=== PATIENT | male | born 1945 | race Caucasian/White ===

== ENCOUNTER 2017-09-28 10:47 | Day surgery (SDC) | payer MEDICARE, OTHER ==
[~2017-09-28] VITALS: Ht 180.3 cm; Wt 78.0 kg
[2017-09-28] VITALS (10 sets, daily range): BP systolic 125–162; BP diastolic 53–73
[2017-09-28] MEDS ORDERED: HEParin (CATH LAB) 2,000 ML IV ONE (10:53)
[2017-09-28] MEDS ORDERED: NS IV 1000 ML 1,000 ML ONE (10:53)
[2017-09-28] MEDS ORDERED: NS IV 1000 ML 1,000 ML IV SCH (11:00)
[2017-09-28 11:27] LABS: HEMOGLOBIN 13.3 G/DL (13.3-17.7); MEAN PLATELET VOLUME 10.1 FL (7.4-10.4); RED BLOOD COUNT 4.19 10^6/uL (4.35-5.85); RED CELL DISTRIBUTION WIDTH 13.2 % (10.0-14.5); WHITE BLOOD COUNT 8.6 10^3/uL (4.3-11.0)
[2017-09-28 11:45] LABS: INR 1.1 (0.8-1.4)
[2017-09-28] MEDS ORDERED: RANI150T90 PO (11:51)
[2017-09-28] MEDS ORDERED: LISI-556 PO (11:51)
[2017-09-28 11:52] LABS: ALANINE AMINOTRANSFERASE 18 U/L (0-55); ALBUMIN 4.5 GM/DL (3.2-4.5); ALKALINE PHOSPHATASE 65 U/L (40-136); BILIRUBIN,TOTAL 1.4 MG/DL (0.1-1.0); BUN/CREATININE RATIO 17; CALCIUM 9.2 MG/DL (8.5-10.1); CARBON DIOXIDE 28 MMOL/L (21-32); CHLORIDE 104 MMOL/L (98-107); CHOLESTEROL 162 MG/DL (< 200); CREATININE SERUM 0.98 MG/DL (0.60-1.30); GFR ESTIMATED > 60; GLUCOSE 104 MG/DL (70-105); HDL CHOLESTEROL 51 MG/DL (40-60); POTASSIUM 4.1 MMOL/L (3.6-5.0); SODIUM 140 MMOL/L (135-145); TOTAL PROTEIN 6.7 GM/DL (6.4-8.2); TRIGLYCERIDES 109 MG/DL (<150); VLDL CHOLESTEROL 22 MG/DL (5-40)
[2017-09-28] MEDS ORDERED: SIMV40TA4 PO (11:52)
[2017-09-28] MEDS ORDERED: IBUP-1773 PO (11:52)
[2017-09-28] MEDS ORDERED: METO-387 PO (11:53)
[2017-09-28] MEDS ORDERED: ACET1TAB45 PO (11:54)
[2017-09-28] MEDS ORDERED: FINA5TAB6 PO (11:56)
[2017-09-28] MEDS ORDERED: MULT-1042 PO (11:56)
[2017-09-28] MEDS ORDERED: ACYC400T PO (11:56)
--- NOTE | 2017-09-28 11:56 | Diagnostic Imaging Report ---
INDICATION: Pre-heart catheterization. Time of exam 11:34 AM No prior studies are available for comparison. The heart size is normal. The pulmonary vascularity is unremarkable. The lungs are clear. No infiltrate, effusion or pneumothorax is detected. Impression: No acute cardiopulmonary process is detected. Dictated by: Dictated on workstation # [id number]
[2017-09-28] MEDS ORDERED: ASCO500T6 PO (11:57)
[2017-09-28] MEDS ORDERED: LIDOCAINE 1% INJ 50 ML (XYLOCAINE) VIAL ONE (12:17)
[2017-09-28] MEDS ORDERED: MIDAZOLAM 5 MG/5 ML (VERSED) VIAL ONE (12:17)
[2017-09-28] MEDS ORDERED: fentaNYL INJECTION 100 MCG/2 ML AMP ONE (12:17)
[2017-09-28] MEDS ORDERED: HEParin 1000 UNIT/ML (10ML VIAL) FOR BOLUS ONE (14:54)
[2017-09-28] MEDS ORDERED: ADENOSINE 3 MG/1 ML (ADENOSCAN) 30ML VIAL IV ONE (14:54)
[2017-09-28] MEDS ORDERED: NITRO DRIP 25000 MCG/D5W 250 ML IV ONE (15:06)
[2017-09-28] MEDS ORDERED: CLOPIDOGREL 300 MG (PLAVIX) TABLET PO ONE (15:14)
[2017-09-28] MEDS ORDERED: ASPIRIN 325 MG (5 GR) TABLET ONE (15:14)
--- NOTE | 2017-09-28 15:15 | Cardiac Procedure Note-CS/ASA ---
Pre-Procedure Note Pre-Op Procedure Note H&P Reviewed The H&P was reviewed, patient examined and no changes noted. Date H&P Reviewed: Sep 28, 2017 Time H&P Reviewed: 15:15 Conscious Sedation Pre-Proced Time Reviewed: 15:15 ASA Class: 3 Airway Mallampati Classification: (nightmute appropriate class) I. II. III, IV Lungs Heart ASA score ASA 1: a normal healthy patient ASA 2: a patient with a mild systemic disease (mid diabetes, controlled hypertension, obesity x ASA 3: a patient with a severe systemic disease that limits activity (angina , COPD, prior Myocardial infarction) ASA 4: a patient with an incapacitating disease that is a constant threat to life (CHF, renal failure) ASA 5: a moribund patient not expected to survive 24 hrs. (ruptured aneurysm) ASA 6: a declared brain patient whose organs are being harvested. For emergent operations, add the letter E after the classification Grade 3 Sedation Plan: Analgesia, Amnesia, Plan communicated to team members, Discussed options with patient/fam, Discussed risks with patient/fam Note The patient is an appropriate candidate to undergo the planned procedure, sedation, and anesthesia. The patient immediately re-assessed prior to indication. ALEXX SZYMANSKI MD Sep 28, 2017 15:15
--- NOTE | 2017-09-28 15:25 | Cardiac Cath Report ---
Cardiac Cath Report Physician (s)/Cutter Apprentice Hand (s) Physician ALEXX SZYMANSKI MD Pre-Procedure Diagnosis Pre-Procedure Diagnosis: Chest pain, Coronary artery Disease Post-Procedure Note Procedure Start Date: Sep 28, 2017 Name of Procedure: Left heart catheterization FFR to the right coronary artery Stent to the right coronary artery Findings/Procedure Note PROCEDURE NOTE: After explaining the procedure to the patient, all pros and cons were explained , all questions were answered. The patient signed the consent and then he was placed on the cardiac catheterization laboratory. Groin was prepped SL fashion local anesthesia was used. Sheath placed in the femoral artery. Heidi right and left catheter were used to access the coronary system. Heidi right was advanced to the left ventricular cavity, pressure was measured, left ventricular gram was done, pullback LV to aorta was done. Then I decided to do FFR to the right coronary artery FFR wire was advanced to the right coronary artery had baseline and it was 0.91 , after 45 minutes of adenosine injection FFR was down to 0.78. I proceeded with primary stenting using 2.532 mm Alpine stent expanded to 2.75 mm with excellent results. No residual stenosis At the end of the procedure the sheath was removed. Closure device was used FINDINGS: Hemodynamics LV 129/16, end-diastolic pressure of 16 Aorta 129/56 mean of 85 ANATOMY: Left Main has no obstructive disease Left Anterior Descending has 40 percent stenosis proximally, nonobstructive disease mild disease distally Left Circumflex is dominant artery with mild disease nonobstructive disease Right Coronory Artery has multiple patent stent, an area in the mid right coronary artery appeared to have 70 percent stenosis, FFR after Adenosine was 0.78. Successful primary stenting using 2.5 x33 Alpine expanded to 2.75 in the midright coronary artery with excellent results. LV Gram is done showing normal left ventricle size and function estimated ejection fraction 60 percent CONCLUSION: 1. Severe midright coronary artery stenosis, old patent stent in the proximal and distal right coronary artery, FFR is 0.78 after Adenosine, successful primary stenting using 2.533 mm Alpine stent expanded to 2.75 with excellent results 2. 40 percent proximal LAD stenosis with mild disease distally 3. Dominant circumflex artery with mild disease obstructive disease 4. Normal left ventricular size and systolic function estimated ejection fraction 60 percent DISCUSSION AND RECOMMENDATION: Patient was loaded with aspirin and Plavix, continue maximizing medical therapy Anesthesia Type: Conscious Sedation Estimated blood loss (mL): 10 ml Contrast Amount: 80 ml Total Radiation Dose: 731 mGy Post-Procedure Diagnosis Post-operative diagnosis: Coronary artery disease Hypertension Hyperlipidemia Family history of heart disease ALEXX SZYMANSKI MD Sep 28, 2017 15:25
[2017-09-28] MEDS ORDERED: PATIENT MAY USE OWN MEDS, ALL PO SCH (15:30)
[2017-09-28] MEDS ORDERED: ACYCLOVIR 400 MG TABLET (ZOVIRAX) PO PRN (16:45)
[2017-09-28] MEDS ORDERED: [UNRECOGNIZED DRUG - OTHER] PO PRN (17:45)
[2017-09-28] MEDS ORDERED: ACETAMINOPHEN WITH CODEINE PO PRN (17:45)
[2017-09-28] MEDS: NS IV 1000 ML 1,000 ML IV SCH (17:59)
[2017-09-28] MEDS ORDERED: NON-FORMULARY MEDICATION 1 EA EA (Ranitidine HCl (Acid Reducer (RANITIDINE)) 150 MG) PO SCH (21:00)
[2017-09-28] MEDS ORDERED: NON-FORMULARY MEDICATION 1 EA EA (Acyclovir 400 MG) PO SCH (21:00)
[2017-09-28] MEDS: raNItidine (ZANTAC) 150 MG TAB NON-FORMULARY PO SCH (21:00)
[2017-09-28] MEDS ORDERED: METOPROLOL SUCCINATE 12.5 MG PO SCH (21:00)
[2017-09-28] MEDS ORDERED: NON-FORMULARY MEDICATION 1 EA EA (Simvastatin 40 MG) PO SCH (21:00)
[2017-09-28] MEDS ORDERED: SIMvastatin 40 MG (ZOCOR) TAB PO SCH (21:00)
[2017-09-28] MEDS: TYLENOL PO PRN (21:04)
[2017-09-28] MEDS: CODEINE PO PRN (21:04)
[2017-09-29] VITALS: BP 153/75
[2017-09-29] MEDS: CODEINE PO PRN (03:14)
[2017-09-29] MEDS: TYLENOL PO PRN (03:14)
[2017-09-29 03:15] VITALS: BP 154/77
[2017-09-29] MEDS: NS IV 1000 ML 1,000 ML IV SCH (03:15)
[2017-09-29 04:12] LABS: HEMOGLOBIN 12.2 G/DL (13.3-17.7); MEAN PLATELET VOLUME 10.7 FL (7.4-10.4); RED BLOOD COUNT 3.86 10^6/uL (4.35-5.85); WHITE BLOOD COUNT 6.5 10^3/uL (4.3-11.0)
[2017-09-29 04:42] LABS: BUN/CREATININE RATIO 22; CALCIUM 8.2 MG/DL (8.5-10.1); CARBON DIOXIDE 25 MMOL/L (21-32); CHLORIDE 109 MMOL/L (98-107); CREATININE SERUM 0.79 MG/DL (0.60-1.30); GFR ESTIMATED > 60; GLUCOSE 81 MG/DL (70-105); POTASSIUM 4.1 MMOL/L (3.6-5.0); SODIUM 141 MMOL/L (135-145)
[2017-09-29] MEDS ORDERED: MULTIVIT W/MINERALS TAB (THERAGRAN M) PO SCH (07:00)
[2017-09-29 07:20] VITALS: BP 159/73
--- NOTE | 2017-09-29 07:52 | Cardiology Progress Note ---
Subjective Date Seen by Provider: Sep 29, 2017 Time Seen by Provider: 07:51 Subjective/Events-last exam Patient is laying down in bed, denied any chest pain, no shortness of breath, groin is healing well. Educated in length about compliance with medication and diet especially Plavix, he was concerned about the easy bruising Review of Systems General: No Chills, No Night Sweats, No Fatigue, No Malaise, No Appetite, No Other HEENT: No Head Aches, No Visual Changes, No Eye Pain, No Ear Pain, No Dysphasia , No Sinus Congestion, No Post Nasal Drip, No Sore Throat, No Other Pulmonary: No Dyspnea, No Cough, No Pleuritic Chest Pain, No Other Cardiovascular: No: Chest Pain, Palpitations, Orthopnea, Paroxysmal Noc. Dyspnea, Edema, Lt Headedness, Other Objective-Cardiology Exam Last Set of Vital Signs Vital Signs 09/29/17 07:20 Temp 97.8 Pulse 55 Resp 20 B/P (MAP) 159/73 (101) Pulse Ox 100 O2 Delivery Room Air Capillary Refill : Less Than 3 Seconds I&O Intake and Output 09/29/17 00:00 Intake Total 1000 ml Balance 1000 ml Intake IV Total 1000 ml General: Alert, Oriented X3, Cooperative HEENT: Atraumatic, PERRLA Neck: Supple, No JVD, No Thyromegaly Lungs: Clear to Auscultation, Normal Air Movement Heart: Regular Rate, Normal S1, Normal S2, No Murmurs Abdomen: Normal Bowel Sounds, Soft, No Tenderness, No Hepatosplenomegaly, No Masses Extremities: No Clubbing, No Cyanosis, No Edema, Normal Pulses, No Tenderness/ Swelling Skin: No Rashes, No Breakdown, No Significant Lesion Neuro: Normal Gait, Normal Speech, Strength at 5/5 X4 Ext, Normal Tone, Sensation Intact Psych/Mental Status: Mental Status NL, Mood NL Results Lab Laboratory Tests 09/28/17 11:22 09/29/17 03:00 A/P-Cardiology Admission Diagnosis Coronary artery disease Hypertension Hyperlipidemia Family history of heart disease Assessment/Plan Coronary artery disease, history of multiple stents in the past, underwent cardiac catheterization with a long stent deployment using 2.532 mm Alpine to the right coronary artery, mild to moderate disease at the rest of his coronary system. He will need to be on aspirin and Plavix for at least 6 months then continue on aspirin alone. History of easy bruising with antiplatelet treatment, concerned about it, I emphasized on the compliance with medication, I will evaluate Plavix metabolism Hypertension, controlled, continue to monitor blood pressure Hyperlipidemia, continue to monitor lipids Strong family history of heart disease ALEXX SZYMANSKI MD Sep 29, 2017 07:52
[2017-09-29] MEDS ORDERED: ASPI-983 PO (07:53)
[2017-09-29] MEDS ORDERED: CLOP75TA28 PO (07:53)
[2017-09-29] MEDS ORDERED: CLOP75TA69 PO (07:54)
--- NOTE | 2017-09-29 07:57 | Discharge Inst-Post CATH ---
Discharge Inst-CATH Post Cardiac Cath D/C Inst Follow Up/Plan Appointment with Dr. Fry's office in 2-4 weeks CARDIAC CATH DISCHARGE INSTRUCTIONS *Hold Metformin for 48 hours post heart cath. ACTIVITY * Go Home directly and rest. * Limit activity of the leg (or wrist if it was used) for 7 days including aerobics, swimming, jogging, bicycling, etc. * Restrict stair-climbing for 7 days if possible, if not, climb up with your non -cath leg, then bring together on the same step. * Avoid lifting, pushing, pulling or excessive movement of the affected extremity for 7 days. * Customary sexual activity may be resumed after 2 days-use caution not to use a position that strains or causes pain to the affected extremity. * No driving for 24 hours. * NO SMOKING. * Avoid straining for bowel movements for 7 days. * Gentle walking on level ground is allowed. * Returning to work will depend on the type of procedure and the results. Your doctor will discuss this with you. CALL YOUR DOCTOR FOR ANY OF THE FOLLOWING: *If bleeding from the puncture site occurs- Apply gentle pressure to site with clean cloth and call your doctor or EMS. * If a knot or lump forms under the skin, increases in size, or causes pain. * If bruising appears to be worsening or moving further down your leg instead of disappearing. * Temperature above 101 F. CARE OF YOUR GROIN INCISION; * Bruising or purple discoloration of the skin near the puncture site is common. * You may shower only, no bathtub bathing for 5 days. Be careful to avoid slipping as your leg may feel stiff. * If a closure device was used on your femoral artery, please see the attached guide regarding care of the device and your leg. * REMOVE the dressing from your groin the next day after your procedure in the shower. CARE OF YOUR WRIST INCISION; * Bruising or purple discoloration of the skin near the puncture site is common. * You may shower. * DO NOT submerge wrist. * Remove dressing in 24 hours. ALEXX FRY MD Sep 29, 2017 07:57
[2017-09-29] MEDS: raNItidine (ZANTAC) 150 MG TAB NON-FORMULARY PO SCH (08:28)
[2017-09-29] MEDS ORDERED: MULTIVIT MIN PO SCH (09:00)
[2017-09-29] MEDS ORDERED: IRON FUM PO SCH (09:00)
[2017-09-29] MEDS ORDERED: NON-FORMULARY MEDICATION 1 EA EA (Finasteride 5 MG) PO SCH (09:00)
[2017-09-29] MEDS ORDERED: ASPIRIN E.C. 81 MG (ECOTRIN) TAB PO SCH (09:00)
[2017-09-29] MEDS ORDERED: lisINopril 5 MG (PRINIVIL) TABLET PO SCH (09:00)
[2017-09-29] MEDS ORDERED: [UNRECOGNIZED DRUG - OTHER] PO SCH (09:00)
[2017-09-29] MEDS ORDERED: FINASTERIDE (PROSCAR) 5 MG TAB PO SCH (09:00)
[2017-09-29] MEDS ORDERED: NON-FORMULARY MEDICATION 1 EA EA (Lisinopril 5 MG) PO SCH (09:00)
[2017-09-29] MEDS ORDERED: CLOPIDOGREL 75 MG (PLAVIX) TABLET PO SCH (09:00)
[2017-09-29] MEDS ORDERED: FOLIC AC PO SCH (09:00)
[2017-09-29 09:48] VITALS: BP 159/73
== END 2017-09-29 09:48 | disposition home or self-care (01) ==
LOC: CATH 10:47 → ICU 15:40 → CATH 09-29 09:48
PROVIDERS: ATTEND Internal Medicine Cardiovascular Disease
DX: I25.10 Atherosclerotic heart disease of native coronary artery without angina pectoris (principal); I10 Essential (primary) hypertension; E78.5 Hyperlipidemia, unspecified; Z82.49 Family history of ischemic heart disease and other diseases of the circulatory system; Z95.5 Presence of coronary angioplasty implant and graft
CPT/HCPCS: 36415; 71045; 80048; 80053; 80061; 81225; 85027; 85610; 85730; 87081; 93005; 93571

== ENCOUNTER → 2019-02-16 | Outpatient (CLI) | payer MEDICARE, OTHER ==
[~2019-02-16] MED LIST: ACET1TAB45 PO; ACYC400T PO; ASCO500T6 PO; ASPI-983 PO; CLOP75TA28 PO; CLOP75TA69 PO; FINA5TAB6 PO; IBUP-1773 PO; LISI-556 PO; METO-387 PO; MULT-1042 PO; RANI150T90 PO; SIMV40TA4 PO
[2019-02-16 11:57] LABS: BUN/CREATININE RATIO 20; CREATININE SERUM 0.89 MG/DL (0.60-1.30); GFR ESTIMATED > 60
== END ==
LOC: LAB 11:31
PROVIDERS: ATTEND Internal Medicine Cardiovascular Disease
DX: I65.23 Occlusion and stenosis of bilateral carotid arteries (principal)
CPT/HCPCS: 36415; 82565; 84520

== ENCOUNTER → 2019-02-16 | Outpatient (CLI) | payer MEDICARE, OTHER ==
--- NOTE | 2019-02-16 14:59 | Diagnostic Imaging Report ---
INDICATION: Carotid stenosis. COMPARISON: No prior studies are available for comparison. TECHNIQUE: Axial imaging through the neck was performed after the administration of intravenous contrast and utilizing CT angiography protocol. Multiplanar, 3-D and MIP reformations were also performed. FINDINGS: There is a two-vessel branching pattern to the aortic arch,, consistent with a bovine arch. Both common carotid arteries are widely patent. There is some mild calcified plaque at the right carotid bifurcation and proximal right ICA, however, no stenosis is identified. Right internal carotid artery is widely patent. Calcified plaque at the left carotid bifurcation is also seen. There is a high-grade stenosis of the proximal left ICA, with only a string of flow. The ICA distal to this stenosis is patent and shows normal caliber. Findings are consistent with greater than 90% diameter stenosis. The vertebral arteries are codominant. No vertebral stenosis is identified. The basilar artery is patent. Carotid siphons demonstrate some calcified plaque but are otherwise widely patent. 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 Right carotid system is unremarkable. Dictated by: Dictated on workstation # [id number]
== END ==
LOC: RAD 11:26
PROVIDERS: ATTEND Internal Medicine Cardiovascular Disease
DX: I65.23 Occlusion and stenosis of bilateral carotid arteries (principal)
CPT/HCPCS: 70498

== ENCOUNTER → 2019-08-27 | Outpatient (CLI) | payer MEDICARE, OTHER ==
[~2019-08-27] VITALS: Ht 180 cm; Wt 78.0 kg
[~2019-08-27] MED LIST changes: -METO-387 PO; +MTP25TSR PO; +REGADENOSON 0.4 MG/5 ML SYR (LEXISCAN) IV ONE; +SIMV40TA25 PO; -SIMV40TA4 PO
[2019-08-27] MEDS: CATHETER FLUSH 10 ML SYR IV PRN ×2 (08:07→09:07)
[2019-08-27 09:06] VITALS: BP 149/78
--- NOTE | 2019-08-27 14:38 | STRESS TEST ---
DATE OF SERVICE: 08/27/2019 LEXISCAN MYOVIEW STRESS TEST REPORT REFERRING PHYSICIAN: Dr. Nilesh Walker. Baseline heart rate is 49. Baseline blood pressure is 149/78. Baseline EKG is sinus rhythm with occasional PVCs and transient ventricular bigeminy. In summary, the patient was injected with 10.22 mCi of technetium-99 Myoview and the resting images were obtained. Then, the patient received 0.4 mg of Lexiscan followed by 31.7 mCi of technetium-99 Myoview. Throughout the test, there were no EKG changes. The resting and stress images were reviewed and compared in the short axis, horizontal long axis, and vertical long axis views. Review of the images showed good radiotracer uptake with no significant ischemia or infarction. SSS is 0. TID value is 0.98. On the gated images, the left ventricle appeared to be normal size with normal contractility. Calculated ejection fraction is 62%. CONCLUSION: 1. The patient tolerated Lexiscan well. 2. Transient episode of ventricular bigeminy noted during test. 3. No significant ischemia or infarction on SPECT images. 4. Normal left ventricular size with normal contractility. Calculated ejection fraction is 62%. Job ID: [id number] DocumentID: [id number] Dictated Date: 08/27/2019 11:50:31 Etl Database Developer Date: 08/27/2019 14:37:54 Dictated By: ALEXX SZYMANSKI MD
== END ==
LOC: CARD 07:49
PROVIDERS: ATTEND Internal Medicine Cardiovascular Disease
DX: I25.10 Atherosclerotic heart disease of native coronary artery without angina pectoris (principal); I65.29 Occlusion and stenosis of unspecified carotid artery; I10 Essential (primary) hypertension; E78.2 Mixed hyperlipidemia
CPT/HCPCS: 78452; 93017

== ENCOUNTER → 2019-10-16 | Outpatient (CLI) | payer MEDICARE, OTHER ==
[~2019-10-16] MED LIST changes: +ASCO500T17 PO; -ASCO500T6 PO; -REGADENOSON 0.4 MG/5 ML SYR (LEXISCAN) IV ONE
== END ==
LOC: CARD 09:01
PROVIDERS: ATTEND Physician Assistant
DX: I08.0 Rheumatic disorders of both mitral and aortic valves (principal); I25.10 Atherosclerotic heart disease of native coronary artery without angina pectoris; I65.29 Occlusion and stenosis of unspecified carotid artery; I10 Essential (primary) hypertension; E78.2 Mixed hyperlipidemia
CPT/HCPCS: 93306

== ENCOUNTER → 2023-01-26 | Outpatient (CLI) | payer MEDICARE ==
[~2023-01-26] MED LIST changes: +ACET-17 PO; -ACET1TAB45 PO; -ACYC400T PO; +ACYC400T21 PO; +ASPI-1238 PO; -ASPI-983 PO; +CLOP-31 PO; -CLOP75TA69 PO; -LISI-556 PO; +LISI5TAB20 PO
== END ==
LOC: CARD 09:00
PROVIDERS: ATTEND Internal Medicine Cardiovascular Disease
DX: I08.0 Rheumatic disorders of both mitral and aortic valves (principal); I10 Essential (primary) hypertension; I25.10 Atherosclerotic heart disease of native coronary artery without angina pectoris
CPT/HCPCS: 93306

== ENCOUNTER → 2023-03-09 | Outpatient (CLI) | payer MEDICARE ==
[~2023-03-09] MED LIST changes: +CATHETER FLUSH 10 ML SYR IVP PRN; +REGADENOSON 0.4 MG/5 ML SYR IV ONE
[2023-03-09 12:59] VITALS: BP 158/78
--- NOTE | 2023-03-10 08:02 | Cardiology Stress Test Report ---
Stress Test Report Date of Procedure/Referring: Date of Procedure: Mar 09, 2023 PCP Jesi Castillo MD Admitting Physician Admitting Physician: Attending Physician: Nayely Fry MD Baseline Heart Rate: 43 Baseline Blood Pressure: Blood Pressure Systolic: 158 Blood Pressure Diastolic: 78 Baseline Vitals Vital Signs Date Time Temp Pulse Resp B/P (MAP) Pulse Ox O2 Delivery O2 Flow Rate FiO2 03/09/23 12:59 43 158/78 (104) 92 Baseline EKG: Baseline EKG: NSR Summary After explaining the procedure to the patient, he signed a consent and then brought to the stress nuclear laboratory. Patient received 0.4 mg Lexiscan for stress test, ECG, heart rate and blood pressure were monitored continuously. Resting and stress dose of radio tracer were injected, imaging was acquired and reviewed in short axis, horizontal long axis and vertical long axis views. TID: 1.05 SSS: 3 SDS: 3 EF: 55 Patient tolerated Lexiscan well Baseline sinus bradycardia with occasional PVCs persisted during test Baseline heart rate was 43 at the beginning of the test Mild reversible ischemia involving the mid to apical inferior wall with diaphragmatic attenuation Normal left ventricular size, ejection fraction 55% Copy Copies To 1: JESI CASTILLO MD, BASHAR J MD Mar 10, 2023 08:02
== END ==
LOC: CARD 11:17
PROVIDERS: ATTEND Internal Medicine Cardiovascular Disease
DX: I10 Essential (primary) hypertension (principal); I25.10 Atherosclerotic heart disease of native coronary artery without angina pectoris
CPT/HCPCS: 78452; 93017; A9502